=== PATIENT | female | born 1955 | race Caucasian/White ===

== ENCOUNTER 2016-08-21 09:13 | Inpatient (IN) | payer OTHER ==
[~2016-08-21] VITALS: Ht 170.2 cm; Wt 96.7 kg
[~2016-08-21 09:13] MED LIST: ALPRAZOLAM0.5 MG PO; BACTRIM,SEPT1 TABLET PO; GABAPENTIN300 MG PO; MAXALT5 MG PO; MOVANTIK25 MG PO; MULTIVITAMIN1 EAC1 PO; NORCO 5/3251 TABLET PO; OMEPRAZOLE40 M1 PO; OXYCODONE-APAP1 EAC6 PO; ZOFRAN8 MG PO
[2016-08-21 10:30] LABS: BASOPHIL COUNT 0.1 K/uL (0-0.1); EOSINOPHIL (%) 0.8 % (0-5); EOSINOPHIL COUNT 0.1 K/uL (0-0.3); HEMATOCRIT 33.6 % (36.0-46.0); IMMATURE GRANULOCYTE (%) 0.3 % (0.0-0.7); IMMATURE GRANULOCYTE COUNT 0.1 K/uL; INSTRUMENT ABS NEUTROPHIL CT 12.5 K/uL; LYMPHOCYTE COUNT 1.3 K/uL (1.0-2.8); MCH 25.2 PG (29.0-34.0); MCHC 30.7 G/DL (30.0-36.0); MCV 82.2 FL (83-99); MEAN PLAT.VOLUME 9.9 uM^3 (9.5-12.4); MONOCYTE (%) 4.4 % (3-12); MONOCYTE COUNT 0.6 K/uL (0-0.8); NEUTROPHIL (%) 85.2 % (45-76); NEUTROPHIL COUNT 12.5 K/uL (1.8-6.4); PLATELET COUNT 215 K/uL (156-360); RBC DIS.WIDTH-CV 15.7 % (11.8-14.6); RBC DIS.WIDTH-SD 46.6 % (39-53); RED BLOOD COUNT 4.09 M/uL (3.80-5.20); WHITE BLOOD COUNT 14.7 K/uL (4.1-10.2)
[2016-08-21 10:40] LABS: CHLORIDE 110 mEq/L (99-109); POTASSIUM 4.1 mEq/L (3.7-5.4); SODIUM 140 mEq/L (136-147)
[2016-08-21 10:43] LABS: GLUCOSE 127 mg/dL (70-99)
[2016-08-21 10:44] LABS: ANION GAP 10 MEQ/L (2-14)
[2016-08-21 10:45] LABS: TOTAL BILIRUBIN 0.2 mg/dL (0.0-1.0)
[2016-08-21 10:46] LABS: GFR ESTIMATE (CALCULATED) > 59 mL/min/; SERUM ETHYL ALCOHOL < 10 mg/dL
[2016-08-21 10:47] LABS: ALKALINE PHOSPHATASE 74 IU/L (3-129)
[2016-08-21 10:48] LABS: UREA NITROGEN (BUN) 18 mg/dL (9-23)
[2016-08-21 10:49] LABS: TROP-I INTERPRETATION NEGATIVE; TROPONIN-I < 0.01 ng/mL (0.0-0.30)
[2016-08-21 10:50] LABS: SALICYLATE < 5.0 MG/DL (15-30)
[2016-08-21 11:48] LABS: ADD MIUA? YES; BILIRUBIN NEGATIVE; BLOOD NEGATIVE; COLOR STRAW ((YELLOW)); GLUCOSE (STRIP) NEGATIVE; KETONES NEGATIVE; LEUKOCYTES TRACE; NITRITE NEGATIVE; PROTEIN (STRIP) NEGATIVE; UROBILINOGEN 0.2 MG/DL (0.2-1.0)
[2016-08-21 11:55] LABS: AMPHETAMINE NEGATIVE (500 ng/mL); BARBITURATES NEGATIVE (200 ng/mL); BENZODIAZEPINES PRESUMPTIVE POSITIVE (150 ng/mL); COCAINE NEGATIVE (150 ng/mL); INTERNAL CONTROLS VALID? YES; METHADONE NEGATIVE (200 ng/mL); METHAMPHETAMINE NEGATIVE (500 ng/mL); OPIATES (MORPHINE) NEGATIVE (100 ng/mL); OXYCODONE PRESUMPTIVE POSITIVE (100 ng/mL); PHENCYCLIDINE NEGATIVE (25 ng/mL); PROPOXYPHENE NEGATIVE (300 ng/mL); THC CANNABINOIDS NEGATIVE (50 ng/mL); TRICYCLIC ANTIDEPRESSANTS NEGATIVE (300 ng/mL)
[2016-08-21 11:56] LABS: ADD MEDTOX COMMENT Y
[2016-08-21 12:16] LABS: BACTERIA NONE SEEN /HPF; EPITHELIAL CELLS RARE /HPF; MUCUS TRACE /LPF; RED BLOOD CELLS 0-5 /HPF (0-5); UCUL ADDED? NO; WHITE BLOOD CELLS 0-5 /HPF (0-5)
[2016-08-21 12:40] LABS: BENZODIAZEPINES QUANT VALUE 0 NG/ML
[2016-08-21 12:41] LABS: BENZODIAZEPINES, URINE SCREEN Negative (200 ng/mL)
[2016-08-21 15:33] LABS: BICARBONATE 24.2 mEq/L (22-26); CARBOXY HGB 0 % (0-5); METHEMOGLOBIN 0.5 % (0-1.5); PCO2 47 mm Hg (35-45); PO2 93 mm Hg (80-100); pH 7.32 (7.35-7.45)
[2016-08-21 15:34] LABS: COMMENTS - BLOOD GASES A+C+; DEVICE NC; O2 FLOW 2 L/MIN; PRESSURE CONTROL VENTILATION 18 CM H20; SITE RR
[2016-08-21 17:40] VITALS: BP 151/78
[2016-08-21] MEDS ORDERED: PERCOCET 10/1 TABLET PO (17:50)
[2016-08-21] MEDS ORDERED: ZOLPIDEM TARTRAT5 MG PO (17:52)
[2016-08-21] MEDS ORDERED: CITALOPRAM HBR20 MG PO (17:53)
[2016-08-21] MEDS ORDERED: CITALOPRAM HBR10 MG PO (17:54)
[2016-08-21] MEDS ORDERED: K-TAB10 MEQ PO (17:55)
[2016-08-21] MEDS ORDERED: OMEPRAZOLE40 M1 PO (17:56)
[2016-08-21] MEDS ORDERED: CYCLOBENZAPRINE10 MG PO (17:57)
[2016-08-21] MEDS ORDERED: ONDANSETRON HCL8 MG PO (17:58)
[2016-08-21] MEDS ORDERED: GABAPENTIN600 MG PO (17:59)
[2016-08-21] MEDS ORDERED: FUROSEMIDE20 MG PO (18:00)
[2016-08-21] MEDS ORDERED: MOVANTIK25 MG PO (18:01)
[2016-08-21] MEDS ORDERED: LORAZEPAM0.5 MG PO (18:02)
[2016-08-21] MEDS ORDERED: MAXALT5 MG PO (18:03)
[2016-08-21] MEDS ORDERED: MYCOSTATIN15 GM TP (18:04)
[2016-08-21] MEDS ORDERED: VOLTAREN 1% GE100 GM TP (18:05)
[2016-08-21] MEDS ORDERED: PENNSAID2 GM TP (18:06)
[2016-08-21] MEDS ORDERED: MIRALAX17 GM PO (18:07)
[2016-08-21] MEDS ORDERED: FLOVENT DISKUS1 DIS2 NS (18:07)
[2016-08-21] MEDS ORDERED: KLOR-CON 1010 ME1 PO (18:08)
[2016-08-21 19:38] VITALS: BP 173/92
[2016-08-22] VITALS (7 sets, daily range): BP systolic 112–175; BP diastolic 67–97
[2016-08-22 07:13] LABS: MCH 24.8 PG (29.0-34.0); MCHC 30.6 G/DL (30.0-36.0); MEAN PLAT.VOLUME 11.1 uM^3 (9.5-12.4); PLATELET COUNT 193 K/uL (156-360); RBC DIS.WIDTH-CV 15.9 % (11.8-14.6); RBC DIS.WIDTH-SD 46.9 % (39-53); RED BLOOD COUNT 3.95 M/uL (3.80-5.20)
[2016-08-22 07:15] LABS: WHITE BLOOD COUNT 8.5 K/uL (4.1-10.2)
[2016-08-22 07:20] LABS: ANION GAP 10 MEQ/L (2-14); CHLORIDE 115 MEQ/L (99-109); GFR ESTIMATE (CALCULATED) > 59 mL/min/; GLUCOSE 96 mg/dL (70-99); POTASSIUM 4.2 MEQ/L (3.7-5.4); SAMPLE HEMOLYSIS CHECK 0; SAMPLE ICTERIC CHECK 0; SAMPLE LIPEMIA CHECK 0; SODIUM 147 MEQ/L (136-147); UREA NITROGEN (BUN) 12 mg/dL (9-23)
[2016-08-23 05:13] VITALS: BP 162/92
[2016-08-23 06:50] LABS: HEMATOCRIT 29.6 % (36.0-46.0); MCH 24.9 PG (29.0-34.0); MCHC 30.7 G/DL (30.0-36.0); MCV 80.9 FL (83-99); MEAN PLAT.VOLUME 10.4 uM^3 (9.5-12.4); PLATELET COUNT 204 K/uL (156-360); RBC DIS.WIDTH-CV 15.7 % (11.8-14.6); RBC DIS.WIDTH-SD 46.3 % (39-53); RED BLOOD COUNT 3.66 M/uL (3.80-5.20)
[2016-08-23 06:53] LABS: WHITE BLOOD COUNT 5.9 K/uL (4.1-10.2)
[2016-08-23 07:08] LABS: ANION GAP 8 MEQ/L (2-14); CHLORIDE 111 MEQ/L (99-109); GFR ESTIMATE (CALCULATED) > 59 mL/min/; GLUCOSE 88 mg/dL (70-99); POTASSIUM 3.7 MEQ/L (3.7-5.4); SAMPLE HEMOLYSIS CHECK 0; SAMPLE ICTERIC CHECK 0; SAMPLE LIPEMIA CHECK 0; SODIUM 143 MEQ/L (136-147); UREA NITROGEN (BUN) 8 mg/dL (9-23)
[2016-08-23 08:30] VITALS: BP 188/106
[2016-08-23 11:15] VITALS: BP 195/107
[2016-08-23 11:40] VITALS: BP 170/101
[2016-08-23 16:27] VITALS: BP 153/98
[2016-08-23 19:15] VITALS: BP 164/105
[2016-08-24 00:54] VITALS: BP 165/94
[2016-08-24 04:54] VITALS: BP 137/88
[2016-08-24 06:14] LABS: HEMATOCRIT 34.7 % (36.0-46.0); MCHC 31.4 G/DL (30.0-36.0); MCV 79.6 FL (83-99); MEAN PLAT.VOLUME 10.6 uM^3 (9.5-12.4); PLATELET COUNT 247 K/uL (156-360); RBC DIS.WIDTH-CV 16.2 % (11.8-14.6); RBC DIS.WIDTH-SD 46.4 % (39-53); RED BLOOD COUNT 4.36 M/uL (3.80-5.20); WHITE BLOOD COUNT 7.1 K/uL (4.1-10.2)
[2016-08-24 07:10] LABS: ANION GAP 10 MEQ/L (2-14); CHLORIDE 109 MEQ/L (99-109); GFR ESTIMATE (CALCULATED) > 59 mL/min/; POTASSIUM 3.9 MEQ/L (3.7-5.4); SAMPLE HEMOLYSIS CHECK 0; SAMPLE ICTERIC CHECK 0; SAMPLE LIPEMIA CHECK 0; SODIUM 143 MEQ/L (136-147); UREA NITROGEN (BUN) 8 mg/dL (9-23)
[2016-08-24 07:15] LABS: GLUCOSE 114 mg/dL (70-99)
[2016-08-24 08:00] VITALS: BP 160/93
[2016-08-24 12:48] VITALS: BP 166/95
== END 2016-08-24 15:00 | disposition home or self-care (01) | DRG 917 ==
LOC: EME 09:13 → EDOF 14:57 → 4EAST 14:57
PROVIDERS: Emergency Medicine; Hospitalist
DX: T40.2X1A Poisoning by other opioids, accidental (unintentional), initial encounter (principal); G92 Toxic encephalopathy; N39.0 Urinary tract infection, site not specified; F11.20 Opioid dependence, uncomplicated; G89.29 Other chronic pain; M79.7 Fibromyalgia; F41.9 Anxiety disorder, unspecified; F32.9 Major depressive disorder, single episode, unspecified; F17.210 Nicotine dependence, cigarettes, uncomplicated; M19.90 Unspecified osteoarthritis, unspecified site; Z98.84 Bariatric surgery status; Z90.49 Acquired absence of other specified parts of digestive tract; Z96.653 Presence of artificial knee joint, bilateral
CPT/HCPCS: 36600; 70450; 71010; 80048; 80053; 81003; 82140; 82803; 83605; 84443; 84484; 84999; 85025; 85027; 87040; 93005; 99281; 99285; G0480; J0360; J1200; J1630; J1650; J2060; J2250; J2310; J2405; J7030; S0028